=== PATIENT | male | born 1960 | race Caucasian/White ===

== ENCOUNTER 2019-03-16 11:12 | Day surgery (SDC) | payer OTHER ==
[2019-03-16] MEDS ORDERED: FENTAnyl 50 MCG/ML VIAL (15:25)
[2019-03-16] MEDS ORDERED: PROPOFOL 20 ML ×2 (15:25→15:56)
[2019-03-16] MEDS ORDERED: ONDANSETRON 4 MG INJ IV (15:30)
== END 2019-03-16 18:51 | disposition home or self-care (01) ==
LOC: GIL 11:12
DX: Z12.11 Encounter for screening for malignant neoplasm of colon (principal); K64.8 Other hemorrhoids
CPT/HCPCS: 45378